=== PATIENT | female | born 1950 | race Caucasian/White ===

== ENCOUNTER → 2017-06-13 | Outpatient (CLI) | payer BC, OTHER ==
--- NOTE | 2017-06-13 09:40 | MRI ---
EXAM DESCRIPTION: Lumbar Spine w/o Contrast MRI. CLINICAL HISTORY: SCIATICA, UNSPECIFIED SIDE COMPARISON: MRI lumbar spine 11/08/2010. TECHNIQUE: Multiplanar, multiple standard sequences, non contrast MRI, lumbar spine. FINDINGS: L5-S1: Marked loss of disc space. No significant disc bulging in the canal. Residual disc bulge 4 mm into the left foramen abutting the exiting left L5 nerve with moderate canal narrowing. Bilateral Modic type II endplate reactive changes encroaching on the foramina more left than right. Mild right foraminal narrowing. Canal patent. Minimal arthrosis in the facet facets and posterior ligament hypertrophy. L4-5 disc desiccation without bulging. Trace anterolisthesis. Mild to moderate hypertrophy of the posterior ligaments and facets abutting the thecal sac. Mild canal narrowing. L3-4: Disc desiccation and posterior disc space narrowing. Tiny posterior bulge. Marked facet and ligament hypertrophy more left than right resulting in a T-shaped canal and mass effect on the thecal sac laterally by the ligaments. Bilateral lateral recess narrowing. Bilateral moderate foraminal narrowing more on the right. L2-3: Minimal desiccation with no bulging into the canal. Minimal bulging to the left and narrowing of the left foramen. Mild facet and ligament hypertrophy and mild canal narrowing. Right foramen is patent. L1-2: Minimal disc desiccation with no bulging. Canal and foramina are patent. Conus terminates at this level. T12-L1: Tiny posterior bulge. Mild canal narrowing. Minimal facet and ligament hypertrophy bilaterally. Bilateral nerve root sleeves cysts in the foramina larger on the right. Anterior Modic type II endplate reactive changes T11-12 disc space with disc desiccation. Paravertebral soft tissues negative. Normal marrow signal in the remaining vertebral bodies and the posterior elements. Vertebral bodies are not compressed at any level. L2-L4 dextroscoliosis. IMPRESSION: 1. Marked hypertrophy of the posterior facets and ligaments at L3-4 with T-shaped canal and mass effect on the thecal sac. Narrowing of the lateral recesses. This is progressed since the prior study. 2. L4-5 disc desiccation and grade 1 anterolisthesis stable since the prior study. 3. L5-S1 bilateral disc osteophyte complex encroachment on the foramina more on the left abutting the exiting left L5 nerve. This has progressed since the prior study. 4. 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 Electronically signed by: Prasanna Bolaños MD 06/13/2017 9:39 AM [facility]
== END | disposition home or self-care (01) ==
LOC: MRI 07:06
PROVIDERS: ATTEND Family Medicine
DX: M54.30 Sciatica, unspecified side (principal)

== ENCOUNTER 2020-05-04 11:14 | Outpatient (CLI) | payer BC | END 2020-05-05 11:40 | disposition home or self-care (01) | LOC: INFRM 11:14 | PROVIDERS: ATTEND Family Medicine | DX: U07.1 COVID-19 (principal); Z23 Encounter for immunization ==